=== PATIENT | male | born 1985 | race Caucasian/White ===

== ENCOUNTER 2018-08-06 07:58 | Emergency (ER) | payer BC ==
[2018-08-06 08:09] VITALS: BP 152/81
== END 2018-08-06 08:40 | disposition left against medical advice (07) ==
LOC: UCEAST 07:58
DX: S80.862A Insect bite (nonvenomous), left lower leg, initial encounter (principal); W57.XXXA Bitten or stung by nonvenomous insect and other nonvenomous arthropods, initial encounter; Y92.9 Unspecified place or not applicable; Z53.21 Procedure and treatment not carried out due to patient leaving prior to being seen by health care provider

== ENCOUNTER 2019-04-08 07:53 | Emergency (ER) | payer BC ==
[2019-04-08] MEDS ORDERED: Acetaminophen TAB* 325 MG PO ONE (08:08)
[2019-04-08] MEDS ORDERED: Ibuprofen TAB* 600 MG PO ONE (08:08)
--- NOTE | 2019-04-08 08:12 | ED ---
Throat Pain/Nasal Congestion - HPI Summary HPI Summary: The patient is a 33 y/o M presenting to [facility] accompanied by with a chief complaint of sudden onset sore throat with mild dysphagia this morning. He reports that last night he had dinner without any exposure to new foods, and he went to bed feeling well. He woke up this morning with a sore throat with a tightening sensation. He has taken liquid Benadryl 10mls this morning. He denies any fever, rhinorrhea, cough nausea, vomiting, or diarrhea. He has a blotchy erythematous rash on the lower extremities which he notes is more chronic although has seemed to worsen with a recent trip to the [facility] and [place]. His son has cold symptoms with nasal congestion, but he has not been around anyone else with a sore throat. He states that he had a similar episode when he was about 8 years old, but he does not have any known allergies to food. No PMHx. Nonsmoker, occasional EtOH, no substance use. Medications reviewed. Allergies noted. - History of Current Complaint Chief Complaint: EDGeneral Time Seen by Provider: 04/08/19 08:01 Hx Obtained From: Patient Onset/Duration: Lasting Hours, Still Present Severity: Moderate Associated Signs And Symptoms: Positive: Dysphagia. Negative: Nasal Discharge Cough: None - Allergies/Home Medications Allergies/Adverse Reactions: Allergies Allergy/AdvReac Type Severity Reaction Status Date / Time No Known Allergies Allergy Verified 04/08/19 07:57 PMH/Surg Hx/FS Hx/Imm Hx Endocrine/Hematology History: Denies: Hx Diabetes Cardiovascular History: Denies: Hx Hypertension Respiratory History: Denies: Hx Chronic Obstructive Pulmonary Disease (COPD) Sensory History: Reports: Hx Contacts or Glasses Opthamlomology History: Reports: Hx Contacts or Glasses - Surgical History Surgical History: None Surgery Procedure, Year, and Place: none Infectious Disease History: No Infectious Disease History: Reports: Traveled Outside the [place] in Last 30 Days - [facility] - Family History Known Family History: Negative: Blood Disorder - Social History Alcohol Use: Occasionally Hx Substance Use: No Substance Use Type: Reports: None Hx Tobacco Use: No Smoking Status (MU): Never Smoked Tobacco Review of Systems Negative: Fever Positive: Sore Throat, Other - dysphagia. Negative: Nasal Discharge Negative: Cough Negative: Vomiting, Diarrhea, Nausea All Other Systems Reviewed And Are Negative: Yes Physical Exam - Summary Physical Exam Summary: Constitutional: Well-developed, Well-nourished, Alert. (-) Distressed Skin: Warm, Dry HENT: Normocephalic; Atraumatic; Bilateral tonsillar swelling and exudate, No stridor, Uvula midline Eyes: Conjunctiva normal Neck: Musculoskeletal ROM normal neck. (-) JVD, (-) Stridor, (-) Tracheal deviation Cardio: Rhythm regular, rate normal, Heart sounds normal; Intact distal pulses; Radial pulses are 2+ and symmetric. (-) Murmur Pulmonary/Chest wall: Effort normal. (-) Respiratory distress, (-) Wheezes, (-) Rales Abd: Soft, (-) tenderness, (-) Distension, (-) Guarding, (-) Rebound Musculoskeletal: (-) Edema Lymph: (-) Cervical adenopathy Neuro: Alert, Oriented x3 Psych: Mood and affect Normal Triage Information Reviewed: Yes Vital Signs On Initial Exam: Initial Vitals Temp Pulse Resp BP Pulse Ox 97.5 F 88 16 165/108 98 04/08/19 07:54 04/08/19 07:54 04/08/19 07:54 04/08/19 07:54 04/08/19 07:54 Vital Signs Reviewed: Yes Procedures - Sedation Patient Received Moderate/Deep Sedation with Procedure: No Diagnostics - Vital Signs Vital Signs Temp Pulse Resp BP Pulse Ox 04/08/19 07:54 97.5 F 88 16 165/108 98 - Laboratory Lab Statement: Any lab studies that have been ordered have been reviewed, and results considered in the medical decision making process. Re-Evaluation - Re-Evaluation First Eval Re-Evaluation Time: 08:35 Comment: We discussed results and plan for discharge. EENT Course/Dx - Course Course Of Treatment: Patient is here with a sore throat. Patient multiple this morning with swelling to his throat. Patient has tonsillar erythema, swelling, and exudate. Patient has no symptoms consistent with an allergic reaction with no prior reaction like this in the past. Patient has no evidence of deep space neck infection on exam. Patient had negative rapid strep. Patient was given Tylenol and Motrin for his symptoms. Patient is likely suffering from the beginning of a viral syndrome and was given very strict return precautions. - Diagnoses Provider Diagnoses: Tonsillitis Discharge ED - Sign-Out/Discharge Documenting (check all that apply): Patient Departure - Patient will be discharged home. - Discharge Plan Condition: Stable Disposition: HOME Patient Education Materials: Tonsillitis (ED) Referrals: Reza Pereira MD [Primary Care Provider] - 3 Days Additional Instructions: Take Motrin and Tylenol for pain. Drink hot tea with honey. Follow up with your primary care provider in 1-3 days. Come back to the emergency department if you have any difficulty breathing, cant swallow at all, or if you have other concerning symptoms. - Billing Disposition and Condition Condition: STABLE Disposition: Home - Attestation Statements Document Initiated by Veda: Yes Documenting Ednaibe: Annabel Rankin Provider For Whom Veda is Documenting (Include Credential): Dr. Forrest Lima MD Scribe Attestation: Annabel Haney scribed for Dr. Forrest Lima MD on 04/08/19 at 0927. Scribe Documentation Reviewed: Yes Provider Attestation: The documentation as recorded by the Annabel patel accurately reflects the service I personally performed and the decisions made by , Dr. Forrest Lima MD Status of Scrkenyetta Document: Viewed
[2019-04-08 08:26] LABS: Rapid Strep Molecular Negative (Negative)
[2019-04-08 09:12] VITALS: BP 133/94
== END 2019-04-08 09:10 | disposition home or self-care (01) ==
LOC: ED 07:53 → MERGE 07:53 → ED 09:10
DX: J03.90 Acute tonsillitis, unspecified (principal); R13.10 Dysphagia, unspecified
CPT/HCPCS: 87651; 99282; A9270-GY